=== PATIENT | female | born 1965 | race African-American/Black ===

== ENCOUNTER 2019-05-15 07:29 | Inpatient (IN) | payer OTHER ==
[~2019-05-15] VITALS: Ht 154.9 cm; Wt 76.2 kg
[2019-05-15] MEDS ORDERED: IBUPROFEN 800MG TABLET PO ONE (08:15)
[2019-05-15 09:17] LABS: BASOPHILS % 0.6 % (0.0-2.0); EOSINOPHILS % 0.7 % (0.0-5.0); HEMATOCRIT. 37.4 % (36.0-48.0); HEMOGLOBIN. 12.7 g/dL (12.0-16.0); LYMPHOCYTES % 38.1 % (20.0-50.0); MEAN CORPUSCULAR HEMOGLOBIN 32.3 pg (28.0-32.0); MEAN CORPUSCULAR VOLUME 94.9 fL (81.0-99.0); MEAN PLATELET VOLUME 7.9 fl (7.4-10.4); MONOCYTES % 7.2 % (2.0-8.0); NEUTROPHILS % 53.4 % (40.0-76.0); PLATELET 275 x1000/uL (130-400); RED BLOOD CELL COUNT 3.94 mill/uL (4.2-5.4); RED CELL DISTRIBUTION WIDTH 13.3 % (11.6-14.6)
[2019-05-15 09:24] LABS: CHLORIDE 108 mEq/L (98-107)
[2019-05-15] MEDS ORDERED: FAMOTIDINE 20MG/2ML VIAL IV ONE ×2 (09:30→10:15)
[2019-05-15 12:07] LABS: CREATINE KINASE 64 IU/L (26-192)
[2019-05-15] MEDS ORDERED: HYDROCODONE/ACETAMINOPHEN 5/325MG TABLET PO PRN (13:45)
[2019-05-15] MEDS ORDERED: ACETAMINOPHEN 325MG TABLET PO PRN (13:45)
[2019-05-15] MEDS ORDERED: IPRATROPIUM/ALBUTEROL 0.5-3(2.5)MG/3ML NEB HHN PRN (13:45)
[2019-05-15] MEDS ORDERED: ONDANSETRON HCL 4MG/2ML INJ IV PRN (13:45)
[2019-05-15] MEDS ORDERED: CLONIDINE 0.1MG TABLET PO PRN (13:45)
[2019-05-15 14:12] LABS: CREATINE KINASE 55 IU/L (26-192)
[2019-05-15 16:00] VITALS: BP 150/87
[2019-05-15 16:49] LABS: *AMPHETAMINES SCREEN URINE NEGATIVE (NEGATIVE); *BARBITURATES SCREEN URINE NEGATIVE (NEGATIVE); *BENZODIAZEPINES SCREEN URINE NEGATIVE (NEGATIVE); *COCAINE SCREEN URINE NEGATIVE (NEGATIVE); METHADONE URINE SCREEN NEGATIVE (NEGATIVE)
[2019-05-15 16:50] LABS: CANNABINOID URINE SCREEN NEGATIVE (NEGATIVE); OPIATES URINE SCREEN NEGATIVE (NEGATIVE); PHENCYCLIDINE URINE SCREEN NEGATIVE (NEGATIVE)
[2019-05-15] MEDS: SODIUM CHLORIDE 0.45% 1,000 ML IV SCH (17:43)
[2019-05-15 17:53] VITALS: BP 150/87
[2019-05-15] MEDS: ENOXAPARIN 40MG/0.4ML SYR SUBCUT SCH (18:12)
[2019-05-15] MEDS ORDERED: FAMO40TA70 PO (18:22)
[2019-05-15] MEDS ORDERED: FLOV44 IH (18:22)
[2019-05-15] MEDS ORDERED: ASPI-986 PO (18:23)
[2019-05-15] MEDS ORDERED: P20 MT (18:23)
[2019-05-15 20:00] VITALS: BP 126/78
[2019-05-15] MEDS: AMLODIPINE 5MG TABLET PO SCH (21:27)
[2019-05-15 23:22] LABS: CREATINE KINASE 46 IU/L (26-192)
[2019-05-16] VITALS: BP 123/74
[2019-05-16 04:00] VITALS: BP 116/61
[2019-05-16] MEDS: SODIUM CHLORIDE 0.45% 1,000 ML IV SCH ×2 (06:30→16:17)
[2019-05-16 07:28] LABS: BASOPHILS % 0.6 % (0.0-2.0); EOSINOPHILS % 1.6 % (0.0-5.0); HEMATOCRIT. 35.6 % (36.0-48.0); HEMOGLOBIN. 12.3 g/dL (12.0-16.0); LYMPHOCYTES % 40.2 % (20.0-50.0); MEAN CORPUSCULAR HEMOGLOBIN 32.6 pg (28.0-32.0); MEAN CORPUSCULAR VOLUME 94.3 fL (81.0-99.0); MEAN PLATELET VOLUME 7.6 fl (7.4-10.4); NEUTROPHILS % 51.6 % (40.0-76.0); PLATELET 249 x1000/uL (130-400); RED BLOOD CELL COUNT 3.78 mill/uL (4.2-5.4); RED CELL DISTRIBUTION WIDTH 12.9 % (11.6-14.6)
[2019-05-16 07:32] LABS: CHLORIDE 109 mEq/L (98-107)
[2019-05-16 07:43] LABS: LDL CHOLESTEROL 147 mg/dL (5-100)
[2019-05-16 07:44] LABS: HDL CHOLESTEROL 47 mg/dL (40-59); T4 FREE 0.94 ng/dL (0.76-1.46)
[2019-05-16 08:00] VITALS: BP 104/68
[2019-05-16] MEDS: AMLODIPINE 5MG TABLET PO SCH (09:00)
[2019-05-16 09:25] LABS: BG BASE EXCESS -0.6 mmol/L (-2.0-2.0); BG CARBOXYHEMOGLOBIN 0.3 % (0.5-1.5); BG DEOXYHEMOGLOBIN 2.8 % (0.0-5.0); BG FRACTION INSPIRED OXYGEN 21; BG HCO3 ACT 23.9 mmol/L (22.0-26.0); BG METHEMOGLOBIN 0.3 % (0.0-1.5); BG OXYGEN SATURATION 97.2 % (92.0-98.5); BG OXYHEMOGLOBIN 96.6 % (94.0-97.0); BG PCO2 38.8 mmHg (35.0-45.0); BG PH 7.407 (7.350-7.450); BG PO2 91.6 mmHg (75.0-100.0); BG SAMPLE SITE RIGHT RADIAL; BG TOTAL HEMOGLOBIN 12.1 g/dL (12.0-18.0); BG VENT MODE ROOM AIR
[2019-05-16] MEDS ORDERED: INFLUENZA VIRUS VACCINE(AFLURIA) 0.5ML SYR IM ONE (10:00)
[2019-05-16] MEDS ORDERED: PNEUMOCOCCAL 23-VAL P-SAC VAC 0.5 ML IM ONE (10:00)
[2019-05-16 12:00] VITALS: BP 124/77
[2019-05-16 16:00] VITALS: BP 118/76
[2019-05-16 16:14] VITALS: BP 118/76
[2019-05-16] MEDS: ENOXAPARIN 40MG/0.4ML SYR SUBCUT SCH (16:44)
== END 2019-05-16 17:15 | disposition home or self-care (01) | DRG 204 ==
LOC: ER 07:29 → 5WST 12:18 → EDBEDREQTM 12:23 → EDBEDREQ 12:23 → ENRESERV 15:33
PROVIDERS: ADMIT Internal Medicine; ATTEND Internal Medicine
DX: R07.81 Pleurodynia (principal); I30.9 Acute pericarditis, unspecified; I31.9 Disease of pericardium, unspecified; I67.1 Cerebral aneurysm, nonruptured; J45.909 Unspecified asthma, uncomplicated; K21.9 Gastro-esophageal reflux disease without esophagitis; I10 Essential (primary) hypertension; E78.5 Hyperlipidemia, unspecified; E78.00 Pure hypercholesterolemia, unspecified; Z90.5 Acquired absence of kidney; Z79.899 Other long term (current) drug therapy; Z79.82 Long term (current) use of aspirin; Z79.51 Long term (current) use of inhaled steroids; Z87.11 Personal history of peptic ulcer disease; Z82.49 Family history of ischemic heart disease and other diseases of the circulatory system
CPT/HCPCS: 36415; 36600; 71045; 80061; 80305; 82375; 82550; 82805; 83880; 84439; 84443; 84484; 85379; 85651; 86038; 86430; 93005; 93306; 96372; 96374; 96375; 99285; J1650; J3490